=== PATIENT | female | born 1960 | race Hispanic/Latino ===

== ENCOUNTER → 2025-03-18 | Outpatient (CLI) | payer OTHER, MEDICARE ==
[~2025-03-18] MED LIST: AEC81 PO; ASCO10004 PO; CLOP-31 PO; GLUC-206 PO; LEVO5TAB13 PO; LOSA25TA41 PO; PRAV40TA62 PO; PROM25TA7 PO; TURM500C13 PO; [UNRECOGNIZED DRUG - CODE] PO
--- NOTE | 2025-03-18 21:21 | HMCIMG ---
EXAM: MR Lumbar Spine Without Intravenous Contrast. CLINICAL HISTORY: Lumbar spinal stenosis without claudication. TECHNIQUE: Magnetic resonance images of the lumbar spine in multiple planes. CONTRAST: None. COMPARISON: MRI dated 12/08/23. FINDINGS: For this examination, spinal levels were labeled assuming five non-rib bearing, lumbar-type vertebrae with the inferior labeled L5. No acute fracture. S-shaped thoracolumbar scoliosis. Normal lordotic curvature. Multilevel spondylosis is evident by marginal osteophytes and facet joint arthropathy. Multilevel disc desiccation and degenerative disc height reduction noted, more pronounced at the L4-L5 level. Normal vertebral body heights. Modic type II changes in the contiguous endplates at the L2-L3 through L5-S1 levels. Conus medullaris terminates at the L1 level. No abnormal epidural masses. Mild subcutaneous edema in the lower back. Partially visualized left adrenal lesion. Individual spinal levels are described as follows: T10-T11 /T/ T11-T12: Facet joint arthropathy causing mild indentation on the posterior thecal sac. T12-L1: No disc bulge or herniation. No neural foraminal, lateral recess or spinal canal stenosis. L1-L2: 3 mm disc osteophyte complex bulge causing mild indentation on the anterior thecal sac. No neural foraminal or lateral recess stenosis. L2-L3: 5 mm disc osteophyte complex bulge causing mild indentation on the anterior thecal sac. No neural foraminal or lateral recess stenosis. L3-L4: 4 mm disc osteophyte complex bulge, ligamentum flavum thickening, and facet joint arthropathy causing mild canal narrowing and mild bilateral foraminal narrowing. No lateral recess stenosis. L4-L5: 4 mm disc osteophyte complex bulge, ligamentum flavum thickening, and facet joint arthropathy causing mild canal narrowing and mild bilateral foraminal narrowing. No lateral recess stenosis. L5-S1: 4 mm disc osteophyte complex bulge and facet joint arthropathy causing mild indentation on the anterior thecal sac, moderate right foraminal narrowing with indentation on the exiting right L5 nerve root, and mild left foraminal narrowing. No lateral recess stenosis. IMPRESSION: S-shaped thoracolumbar scoliosis. Moderate multilevel spondylosis and degenerative disc changes. Modic type II changes in the contiguous endplates at the L2-L3 through L5-S1 levels. Mild indentation on the anterior thecal sac at the L1-L2 and L2-L3 levels. Mild canal narrowing and mild bilateral foraminal narrowing at the L3-L4 and L4-L5 levels. Mild indentation on the anterior thecal sac, moderate right foraminal narrowing with indentation on the exiting right L5 nerve root, and mild left foraminal narrowing at the L5-S1 level. Partially visualized left adrenal lesion. Consider CT/MRI correlation. No significant interval changes. /[place]
== END | disposition home or self-care (01) ==
LOC: RAH 13:25
PROVIDERS: ATTEND Physical Medicine & Rehabilitation
DX: M47.817 Spondylosis without myelopathy or radiculopathy, lumbosacral region (principal); M48.07 Spinal stenosis, lumbosacral region; M99.05 Segmental and somatic dysfunction of pelvic region; M48.061 Spinal stenosis, lumbar region without neurogenic claudication; M51.370 Other intervertebral disc degeneration, lumbosacral region with discogenic back pain only; M47.815 Spondylosis without myelopathy or radiculopathy, thoracolumbar region; E27.9 Disorder of adrenal gland, unspecified; M41.85 Other forms of scoliosis, thoracolumbar region
CPT/HCPCS: 72148

== ENCOUNTER → 2025-04-01 | Outpatient (CLI) | payer OTHER, MEDICARE ==
--- NOTE | 2025-04-01 21:44 | HMCIMG ---
EXAM: XR Right Knee, 2 Views. CLINICAL HISTORY: 64-year-old female with pain in right knee. COMPARISON: None provided. FINDINGS: BONES: No acute fracture or focal osseous lesion. JOINTS: Moderate lateral compartment joint space narrowing and osteophyte formation. SOFT TISSUES: The soft tissues are unremarkable. IMPRESSION: 1. Moderate lateral compartment joint space narrowing and osteophyte formation. EXAM: XR Left Knee, 3 View. CLINICAL HISTORY: 64-year-old female with pain in left knee. COMPARISON: None provided. FINDINGS: BONES: No acute fracture or focal osseous lesion. JOINTS: Moderate lateral compartment joint space narrowing and osteophyte formation. SOFT TISSUES: The soft tissues are unremarkable. IMPRESSION: 1. Moderate lateral compartment joint space narrowing and osteophyte formation. /[place]
--- NOTE | 2025-04-02 05:20 | HMCIMG ---
EXAM: CR Lumbar Spine, 3 views. CLINICAL HISTORY: Pain. COMPARISON: None provided. FINDINGS: Scoliosis of lumbar spine is seen with convexity toward right. Almost all lumbar intervertebral disc spaces are reduced. Osteophytic lipping of articular margin is noted. Normal vertebral body heights. No acute fracture. Soft tissues are within normal limits. IMPRESSION: Moderate lumbar spondylosis. /[place]
== END | disposition home or self-care (01) ==
LOC: RAH 14:48
PROVIDERS: ATTEND Physical Medicine & Rehabilitation
DX: M47.816 Spondylosis without myelopathy or radiculopathy, lumbar region (principal); M48.061 Spinal stenosis, lumbar region without neurogenic claudication; M41.86 Other forms of scoliosis, lumbar region; M54.51 Vertebrogenic low back pain; M99.05 Segmental and somatic dysfunction of pelvic region; M25.561 Pain in right knee; M25.562 Pain in left knee; M25.78 Osteophyte, vertebrae
CPT/HCPCS: 72114

== ENCOUNTER → 2025-04-24 | Outpatient (CLI) | payer OTHER, MEDICAID ==
--- NOTE | 2025-04-24 23:28 | HMCIMG ---
CT ABDOMEN WITHOUT IV CONTRAST Clinical Details: Disorder of adrenal gland, unspecified. Technique: Axial computed tomography images of the abdomen without intravenous contrast. Contrast: No IV contrast. Findings: Lung Bases: The lung bases appear clear. No pleural effusions are seen. Liver: The liver is enlarged, measuring approximately 17 cm in craniocaudal dimension, consistent with hepatomegaly. Fatty liver changes are noted. Gallbladder and Bile Ducts: The gallbladder appears within normal limits. No radioopaque gallstones are seen. No biliary ductal dilatation is evident. Pancreas: The pancreas shows no abnormality. Spleen: The spleen appears normal in size and texture. Adrenal Glands: A well-defined lipomatous lesion consistent with an adenoma is noted in the left adrenal gland, measuring 3.9 x 2.9 cm. The right adrenal gland appears normal. Kidneys and Ureters: Both kidneys and ureters appear normal. No hydronephrosis or nephrolithiasis is identified. Stomach and Bowel: The stomach and bowel demonstrate normal appearance. No evidence of bowel obstruction or inflammatory changes is seen. Peritoneum: No free fluid or free air is present. Lymph Nodes: No lymphadenopathy is evident. Vasculature: No evidence of abdominal aortic aneurysm. Bones: Dextroscoliotic deformity of the lumbar spine is noted. Multilevel degenerative changes are present involving the lumbar vertebrae. No acute osseous abnormality is seen. Additional Findings: A 3.5 cm defect is noted at the umbilicus containing fat consistent with an umbilical hernia. IMPRESSION: 1. Left adrenal adenoma measuring 3.9 x 2.9 cm. 2. Umbilical hernia, 3.5 cm. 3. No acute findings. /[place]
== END | disposition home or self-care (01) ==
LOC: RAH 14:11
PROVIDERS: ATTEND Physical Medicine & Rehabilitation
DX: K42.9 Umbilical hernia without obstruction or gangrene (principal); K76.0 Fatty (change of) liver, not elsewhere classified; D35.02 Benign neoplasm of left adrenal gland; M43.8X6 Other specified deforming dorsopathies, lumbar region; M47.816 Spondylosis without myelopathy or radiculopathy, lumbar region; E27.9 Disorder of adrenal gland, unspecified
CPT/HCPCS: 74150